=== PATIENT | male | born 1980 | race Caucasian/White ===

== ENCOUNTER 2019-11-02 20:24 | Observation (INO) ==
[2019-11-02] MEDS ORDERED: Ondansetron 4 MG/2 ML VIAL IVP PRN (22:20)
[2019-11-02] MEDS ORDERED: Naloxone 0.4 MG/ML INJ IVP PRN (22:20)
[2019-11-02] MEDS ORDERED: Acetaminophen 325 MG TABLET PO PRN (22:25)
[2019-11-03] MEDS ORDERED: Ketorolac 30 MG/ML VIAL IVP SCH
[2019-11-03] MEDS ORDERED: Acetaminophen IV 1,000 MG/100 ML BAG IVPB SCH
[2019-11-03] MEDS: Ketorolac 15 MG/ML VIAL IVP PRN ×2 (00:53→09:52)
[2019-11-03] MEDS: Piperacillin/Tazobactam 3.375 GM in 0.9 % Sodium Chloride Mini Bag 100 ML IVPB SCH ×4 (01:14→23:16)
[2019-11-03] MEDS ORDERED: Nicotine 14 MG PATCH.TD24 TD SCH (02:00)
[2019-11-03 02:03] LABS: Adenovirus Not Detected (Not Detect); Bordetella Pertussis Not Detected (Not Detect); Chlamydophila pneumoniae Not Detected (Not Detect); Coronavirus 229E Not Detected (Not Detect); Coronavirus HKU1 Not Detected (Not Detect); Coronavirus NL63 Not Detected (Not Detect); Coronavirus OC43 Not Detected (Not Detect); Human Metapneumovirus Not Detected (Not Detect); Human Rhinovirus/Enterovirus DETECTED (Not Detect); Influenza A Subtype 2009 H1 Not Detected (Not Detect); Influenza B Not Detected (Not Detect); Mycoplasma pneumoniae Not Detected (Not Detect); Parainfluenza Virus 1 Not Detected (Not Detect); Parainfluenza Virus 2 Not Detected (Not Detect); Parainfluenza Virus 3 Not Detected (Not Detect); Parainfluenza Virus 4 Not Detected (Not Detect); Respiratory Syncytial Virus Not Detected (Not Detect)
[2019-11-03 02:05] LABS: SARS-CoV-2 Not Detected (Not Detect)
[2019-11-03] MEDS: Acetaminophen IV 1,000 MG/100 ML BAG IVPB SCH ×3 (05:20→20:59)
[2019-11-03 05:29] LABS: INR 1.1; Prothrombin Time 12.9 Seconds (9.4-12.1)
[2019-11-03 05:34] LABS: Basophils # 0.1 K/mcL (0.0-0.2); Basophils % 0.9 %; Eosinophils # 0.5 K/mcL (0.0-0.6); Eosinophils % 3.9 %; Hematocrit 40.9 % (37.5-50.1); Immature Granulocytes % 1.4 % (0-4); Lymphocytes # 2.3 K/mcL (0.6-4.6); Lymphocytes % 17.9 %; Mean Corpuscular HGB Conc 31.8 g/dL (31.6-35.5); Mean Corpuscular Hemoglobin 31.2 pg (28.0-33.3); Mean Corpuscular Volume 98.1 fL (83.0-100.0); Mean Platelet Volume 9.8 fL (9.4-12.4); Monocytes # 1.6 K/mcL (0.0-1.3); Monocytes % 12.6 %; Platelet Count 256 K/mcL (140-400); Red Blood Count 4.17 M/mcL (4.19-5.50); Red Cell Distribution Width 13.2 % (11.5-14.5); Segmented Neutrophils % 63.3 %; White Blood Count 12.7 K/mcL (4.3-11.1)
[2019-11-03 05:50] LABS: Alanine Aminotransferase 165 Units/L (7-52); Albumin 3.6 g/dL (3.5-5.7); Albumin/Globulin Ratio 1.3 (1.1-2.2); Alkaline Phosphatase 99 Units/L (34-104); Aspartate Amino Transferase 77 Units/L (13-39); BUN/Creatinine Ratio 15 (6-26); Bilirubin,Total 0.6 mg/dL (0.3-1.0); Blood Urea Nitrogen 13 mg/dL (6-20); Calcium 8.8 mg/dL (8.6-10.3); Carbon Dioxide 30 mEq/L (23-29); Chloride 105 mEq/L (98-107); Globulin 2.8 g/dL (2.4-3.5); Glucose 82 mg/dL (70-105); Magnesium 1.8 mg/dL (1.6-2.6); Osmolality,Calculated 287 (280-300); Phosphorous 3.7 mg/dL (2.7-4.5); Potassium 4.6 mEq/L (3.5-5.1); Sodium 139 mEq/L (136-145); Total Protein 6.4 g/dL (6.4-8.9); eGFR For African Americans > 60 (> 60); eGFR For Non-African Americans > 60 (> 60)
[2019-11-03] MEDS ORDERED: Doxycycline 100 MG in 0.9 % Sodium Chloride Mini Bag 100 ML IVPB SCH (06:00)
[2019-11-03] MEDS ORDERED: risperiDONE 0.25 MG TABLET PO SCH (09:00)
[2019-11-03] MEDS ORDERED: Vancomycin (wt based) 1,000 MG VIAL IVPB SCH (09:00)
[2019-11-03] MEDS ORDERED: Vancomycin 1,000 MG VIAL ONE (09:41)
[2019-11-03] MEDS ORDERED: *HR* Midazolam HCl 2 MG/2 ML VIAL ONE (16:12)
[2019-11-03] MEDS ORDERED: *HR* FentaNYL (PF) 100 MCG/2 ML VIAL ONE ×2 (16:12→17:38)
[2019-11-03] MEDS ORDERED: *HR* Propofol 200 MG/20 ML VIAL IVP ONE ×2 (16:13→17:06)
[2019-11-03] MEDS ORDERED: Dexamethasone 4 MG/ML VIAL ONE ×2 (16:15→17:20)
[2019-11-03] MEDS ORDERED: Ondansetron 4 MG/2 ML VIAL ONE (16:15)
[2019-11-03] MEDS ORDERED: Lidocaine -MPF 2% 2 ML VIAL ONE (16:15)
[2019-11-03] MEDS ORDERED: Ondansetron 4 MG/2 ML VIAL IVP ONE ×2 (16:19→19:25)
[2019-11-03] MEDS ORDERED: *HR* Promethazine 25 MG/ML VIAL IVP PRN ×2 (16:19→19:25)
[2019-11-03] MEDS ORDERED: *HR* HYDROmorphone PF 0.5 MG/0.5 ML SYRINGE IVP PRN ×2 (16:19→19:25)
[2019-11-03] MEDS ORDERED: Acetaminophen IV 1,000 MG/100 ML BAG ONE (16:43)
[2019-11-03] MEDS ORDERED: Famotidine 20 MG/2 ML VIAL ONE (16:43)
[2019-11-03] MEDS ORDERED: *HR* Heparin 5,000 UNIT/ML VIAL SQ SCH (18:00)
[2019-11-03] MEDS ORDERED: Naloxone 0.4 MG/ML INJ IVP PRN (19:25)
[2019-11-03] MEDS ORDERED: Ondansetron 4 MG/2 ML VIAL IVP PRN (19:25)
[2019-11-04] MEDS: *HR* Heparin 5,000 UNIT/ML VIAL SQ SCH ×2 (05:07→17:26)
[2019-11-04] MEDS: Acetaminophen IV 1,000 MG/100 ML BAG IVPB SCH ×2 (05:08→15:14)
[2019-11-04 07:40] LABS: Hematocrit 39.4 % (37.5-50.1); Mean Corpuscular Volume 93.8 fL (83.0-100.0); Mean Platelet Volume 9.7 fL (9.4-12.4); Platelet Count 291 K/mcL (140-400); Red Cell Distribution Width 12.6 % (11.5-14.5); White Blood Count 16.6 K/mcL (4.3-11.1)
[2019-11-04] MEDS: risperiDONE 0.25 MG TABLET PO SCH (07:40)
[2019-11-04] MEDS: Nicotine 14 MG PATCH.TD24 TD SCH (07:41)
[2019-11-04] MEDS: Piperacillin/Tazobactam 3.375 GM in 0.9 % Sodium Chloride Mini Bag 100 ML IVPB SCH (07:41)
[2019-11-04 07:51] LABS: Alanine Aminotransferase 130 Units/L (7-52); Albumin 3.6 g/dL (3.5-5.7); Albumin/Globulin Ratio 1.2 (1.1-2.2); Alkaline Phosphatase 101 Units/L (34-104); Aspartate Amino Transferase 46 Units/L (13-39); BUN/Creatinine Ratio 20 (6-26); Bilirubin,Total 0.4 mg/dL (0.3-1.0); Blood Urea Nitrogen 12 mg/dL (6-20); Calcium 8.9 mg/dL (8.6-10.3); Carbon Dioxide 26 mEq/L (23-29); Chloride 104 mEq/L (98-107); Globulin 2.9 g/dL (2.4-3.5); Glucose 114 mg/dL (70-105); Osmolality,Calculated 283 (280-300); Potassium 4.3 mEq/L (3.5-5.1); Sodium 136 mEq/L (136-145); Total Protein 6.5 g/dL (6.4-8.9); eGFR For African Americans > 60 (> 60); eGFR For Non-African Americans > 60 (> 60)
[2019-11-04 08:49] LABS: Hepatitis B Core IgM Nonreactive (Nonreactive)
[2019-11-04 08:51] LABS: Hepatitis A Antibody IgM Nonreactive (Nonreactive)
[2019-11-04 10:53] LABS: Hepatitis B Surface Antigen Reactive (Nonreactive); Hepatitis C Virus Antibody Reactive (Nonreactive)
[2019-11-04] MEDS: Ketorolac 15 MG/ML VIAL IVP PRN (12:22)
[2019-11-04] MEDS ORDERED: *HR* LORazepam 2 MG/ML VIAL IVP ONE (17:09)
[2019-11-04] MEDS ORDERED: Acetaminophen 325 MG TABLET PO PRN (17:34)
[2019-11-04] MEDS: Vancomycin 1,250 MG/262.5 ML IV.SOLN IVPB SCH (22:20)
[2019-11-05] MEDS: Ketorolac 15 MG/ML VIAL IVP PRN ×2 (05:06→13:23)
[2019-11-05] MEDS: *HR* Heparin 5,000 UNIT/ML VIAL SQ SCH ×2 (05:16→17:05)
[2019-11-05] MEDS: risperiDONE 0.25 MG TABLET PO SCH (08:06)
[2019-11-05] MEDS: Nicotine 14 MG PATCH.TD24 TD SCH (08:06)
[2019-11-05] MEDS: Vancomycin 1,250 MG/262.5 ML IV.SOLN IVPB SCH ×2 (08:06→19:27)
[2019-11-05] MEDS: *HR* LORazepam 2 MG/ML VIAL IVP PRN ×2 (13:23→19:29)
[2019-11-06] MEDS: *HR* Heparin 5,000 UNIT/ML VIAL SQ SCH ×2 (05:41→15:46)
[2019-11-06] MEDS: Ketorolac 15 MG/ML VIAL IVP PRN ×2 (05:50→20:06)
[2019-11-06] MEDS: Vancomycin 1,250 MG/262.5 ML IV.SOLN IVPB SCH (09:44)
[2019-11-06] MEDS: Nicotine 14 MG PATCH.TD24 TD SCH (09:46)
[2019-11-06] MEDS: risperiDONE 0.25 MG TABLET PO SCH (09:46)
[2019-11-06] MEDS: Vancomycin 1,500 MG/265 ML IV.SOLN IVPB SCH ×2 (10:19→22:44)
[2019-11-06] MEDS: *HR* LORazepam 2 MG/ML VIAL IVP PRN (20:06)
[2019-11-06] MEDS ORDERED: Melatonin 3 MG TABLET PO ONE (23:04)
[2019-11-07] MEDS: *HR* Heparin 5,000 UNIT/ML VIAL SQ SCH ×2 (05:47→16:47)
[2019-11-07 07:09] LABS: Hematocrit 39.4 % (37.5-50.1); Hemoglobin 13.3 g/dL (12.9-16.9); Mean Corpuscular HGB Conc 33.8 g/dL (31.6-35.5); Mean Corpuscular Hemoglobin 31.8 pg (28.0-33.3); Mean Corpuscular Volume 94.3 fL (83.0-100.0); Mean Platelet Volume 8.8 fL (9.4-12.4); Platelet Count 292 K/mcL (140-400); Red Blood Count 4.18 M/mcL (4.19-5.50); Red Cell Distribution Width 12.8 % (11.5-14.5); White Blood Count 11.1 K/mcL (4.3-11.1)
[2019-11-07] MEDS: Nicotine 14 MG PATCH.TD24 TD SCH (07:53)
[2019-11-07] MEDS: risperiDONE 0.25 MG TABLET PO SCH (07:53)
[2019-11-07] MEDS: Vancomycin 1,500 MG/265 ML IV.SOLN IVPB SCH (10:28)
[2019-11-07] MEDS ORDERED: Aminoglycoside Consult 1 EACH MC ONE (12:02)
[2019-11-07] MEDS: *HR* LORazepam 2 MG/ML VIAL IVP PRN ×2 (12:45→18:52)
[2019-11-07] MEDS: cephALEXin 500 MG CAPSULE PO SCH ×2 (15:39→20:37)
[2019-11-07] MEDS ORDERED: Melatonin 3 MG TABLET PO ONE (21:13)
[2019-11-08] MEDS: *HR* Heparin 5,000 UNIT/ML VIAL SQ SCH ×2 (05:08→17:06)
[2019-11-08] MEDS: cephALEXin 500 MG CAPSULE PO SCH ×3 (08:33→20:12)
[2019-11-08] MEDS: risperiDONE 0.25 MG TABLET PO SCH (08:33)
[2019-11-08] MEDS: Nicotine 14 MG PATCH.TD24 TD SCH (08:36)
[2019-11-08] MEDS ORDERED: Melatonin 3 MG TABLET PO ONE (20:58)
[2019-11-09] MEDS: *HR* Heparin 5,000 UNIT/ML VIAL SQ SCH (03:54)
[2019-11-09 07:42] VITALS: BP 104/69
[2019-11-09] MEDS: Nicotine 14 MG PATCH.TD24 TD SCH (08:21)
[2019-11-09] MEDS: cephALEXin 500 MG CAPSULE PO SCH (08:21)
[2019-11-09] MEDS: risperiDONE 0.25 MG TABLET PO SCH (08:21)
== END 2019-11-09 12:03 | disposition home or self-care (01) ==
LOC: 3BNU
PROVIDERS: ADMIT Internal Medicine; ATTEND Internal Medicine
PROC: [UNRECOGNIZED PROCEDURE] (2019-11-03 12:20)